=== PATIENT | male | born 1990 | race Caucasian/White ===

== ENCOUNTER 2019-11-08 11:59 | Emergency (ER) | payer BC ==
[~2019-11-08] VITALS: Ht 167.6 cm; Wt 69.0 kg
--- NOTE | 2019-11-08 12:17 | NUR ---
patient to radiology.
[2019-11-08 13:10] VITALS: BP 127/86
[2019-11-08] MEDS ORDERED: TRAM50TA2 PO (13:24)
== END 2019-11-08 13:46 | disposition home or self-care (01) ==
LOC: ER 12:00
DX: R07.89 Other chest pain (principal); F12.90 Cannabis use, unspecified, uncomplicated
CPT/HCPCS: 71100; 99284